=== PATIENT | male | born 1990 | race Caucasian/White ===

== ENCOUNTER 2018-04-08 18:53 | Emergency (ER) | payer OTHER ==
[~2018-04-08] VITALS: Ht 175.3 cm; Wt 63.5 kg
[~2018-04-08 18:53] MED LIST: ACET500 PO; ALBU90OI INH; AMOCLA875 PO; ASACOL HD800 MG PO; AZIT250 PO; AZIT500 PO; BACL10 PO; BACL20; BENZ100A PO; Baclofen10 MG PO; CEPH500 PO; CIPR500 PO; CYCL10 PO; DIVA500EC PO; HYDACE5 PO; HYDPAM25 PO; Hydrocodone-Ap1 EA23 PO; IBUP600 PO; IBUP800 PO; LAMO100 PO; LAMO25; LAMO25 PO; MESA400ER PO; METPHE27ER; MIRT15 PO; MIRT30; NAPR500 PO; Norco 5-325 Ta1 EACH PO; OXYACE5T PO; PRED5 PO; PRODEXEL PO; PROM25 PO; Prednisone20 MG PO; RXHYDACE PO; RXPROM25 PO; Robaxin500 MG PO; SULF500A PO; SULTRIDS PO; TRAM50 PO; Ultram50 MG PO; VICODIN 5-3001 EACH PO; Zofran Odt4 MG SL
[2018-04-08 19:41] LABS: Hematocrit 52.9 % (37.0-53.0); Hemoglobin 17.3 g/dL (13.5-17.5); Mean Corpuscular HGB 28.9 pg (26.0-34.0); Mean Corpuscular HGB Conc 32.7 g/dL (31.5-36.5); Mean Corpuscular Volume 89 fL (80-100); Mean Platelet Volume 10.7 fL (9.1-12.4); Platelet Count 201 K/mm3 (150-400); RDW Coefficient Variation 13.8 % (11.7-14.2); RDW Standard Deviation 44.9 fL (35.1-46.3); Red Blood Cell Count 5.98 M/mm3 (4.30-5.90); White Blood Cell Count 11.79 K/mm3 (4.00-11.30)
[2018-04-08 19:59] LABS: BASOPHILS ABSOLUTE MAN 0.11 K/mm3 (0.00-0.23); BASOPHILS PERCENT MAN 1 % (0-2); EOSINOPHILS PERCENT MAN 0 % (0-6); TOTAL CELLS COUNTED 100
[2018-04-08 20:03] LABS: BAND PERCENT MAN 5 % (0-8); LYMPHOCYTES ABSOLUTE MAN 0.58 K/mm3 (0.84-5.20); LYMPHOCYTES PERCENT MAN 5 % (21-46); NEUTROPHILS ABSOLUTE MAN 10.96 K/mm3 (1.96-9.15); SEG NEUTROPHILS PERCENT MAN 88 % (41-73)
[2018-04-08 20:04] LABS: MONOCYTES ABSOLUTE MAN 0.11 K/mm3 (0.16-1.47); MONOCYTES PERCENT MAN 1 % (4-13)
[2018-04-08 20:21] LABS: Alanine Aminotransfer (ALT/SGP 204 U/L (12-78); Albumin, Blood 5.1 g/dL (3.4-5.0); Albumin/Globulin Ratio 1.2 (0.8-1.8); Alk Phos 97 U/L (50-136); Anion Gap 8 mmol/L (6-16); Aspartate Aminotrans (AST/SGOT 109 U/L (12-37); Blood Urea Nitrogen 33 mg/dL (8-24); CO2, Blood 24 mmol/L (21-32); Calcium, Blood 9.7 mg/dL (8.5-10.1); Chloride, Blood 105 mmol/L (98-108); Creatinine, Blood 0.81 mg/dL (0.60-1.20); Globulin, Blood 4.3 g/dL (2.2-4.0); Glomerular Filtration Rate >60 (60-); Glucose, Blood 124 mg/dL (70-99); Potassium, Blood 4.1 mmol/L (3.5-5.5); Sodium, Blood 137 mmol/L (136-145); Total Protein, Blood 9.4 g/dL (6.4-8.2)
[2018-04-08] MEDS ORDERED: Zofran Odt4 MG PO (23:51)
== END 2018-04-09 00:01 | disposition home or self-care (01) ==
LOC: ER 18:53
PROVIDERS: Emergency Medicine
DX: R11.2 Nausea with vomiting, unspecified (principal); R19.7 Diarrhea, unspecified; Z88.8 Allergy status to other drugs, medicaments and biological substances; Z88.1 Allergy status to other antibiotic agents; Z79.899 Other long term (current) drug therapy; F90.9 Attention-deficit hyperactivity disorder, unspecified type; F31.9 Bipolar disorder, unspecified; F17.210 Nicotine dependence, cigarettes, uncomplicated
CPT/HCPCS: 36415; 80053; 85025; 96361; 96374; 96375; 99283; J2405; J2550; J7030

== ENCOUNTER 2018-12-23 08:49 | Emergency (ER) | payer MEDICAID ==
[~2018-12-23] VITALS: Ht 177.8 cm; Wt 61.2 kg
[~2018-12-23 08:49] MED LIST changes: +Zofran Odt4 MG PO
[2018-12-23 10:38] LABS: Source, Urine Voided
[2018-12-23 10:55] LABS: Appearance, Urine Clear (Clear); Bilirubin, Urine Neg (Neg); Blood, Urine Neg (Neg); Color, Urine Yellow (P-Yellow); Glucose Qualitative, Urine Neg (Neg); Ketones, Urine Neg (Neg); Leukocyte Esterase, Urine Neg (Neg); Nitrite, Urine Neg (Neg); Protein, Urine Neg (Neg); Specific Gravity, Urine 1.005 (1.003-1.022); Urobilinogen, Urine NORM (Normal)
[2018-12-23] MEDS ORDERED: CYCL10 PO (11:11)
== END 2018-12-23 11:18 | disposition home or self-care (01) ==
LOC: ER 08:49
PROVIDERS: Physician Assistant
DX: M54.5 Low back pain (principal); G89.29 Other chronic pain; Z88.8 Allergy status to other drugs, medicaments and biological substances; Z79.899 Other long term (current) drug therapy; F31.9 Bipolar disorder, unspecified; F17.210 Nicotine dependence, cigarettes, uncomplicated
CPT/HCPCS: 81003; 99283

== ENCOUNTER 2019-02-16 20:02 | Emergency (ER) | payer SELFPAY ==
[~2019-02-16] VITALS: Ht 175.3 cm; Wt 56.7 kg
== END 2019-02-16 21:43 | disposition home or self-care (01) ==
LOC: ER 20:02
DX: S01.01XA Laceration without foreign body of scalp, initial encounter (principal); W22.8XXA Striking against or struck by other objects, initial encounter; Z88.8 Allergy status to other drugs, medicaments and biological substances; Z87.891 Personal history of nicotine dependence
CPT/HCPCS: 12001; 99282-25

== ENCOUNTER 2019-02-23 14:56 | Emergency (ER) | payer SELFPAY ==
[~2019-02-23] VITALS: Ht 175.3 cm; Wt 59.0 kg
== END 2019-02-23 15:40 | disposition home or self-care (01) ==
LOC: ER 14:56
DX: S01.01XD Laceration without foreign body of scalp, subsequent encounter (principal); F90.9 Attention-deficit hyperactivity disorder, unspecified type; F31.9 Bipolar disorder, unspecified; Z87.891 Personal history of nicotine dependence

== ENCOUNTER 2019-08-26 19:43 | Emergency (ER) | payer BC ==
[~2019-08-26] VITALS: Ht 175.3 cm; Wt 61.2 kg
[2019-08-26] MEDS ORDERED: CYCL10 PO (22:42)
== END 2019-08-26 23:15 | disposition home or self-care (01) ==
LOC: ER 19:43
DX: M54.41 Lumbago with sciatica, right side (principal); G89.29 Other chronic pain; Z88.8 Allergy status to other drugs, medicaments and biological substances; Z88.1 Allergy status to other antibiotic agents; Z87.891 Personal history of nicotine dependence
CPT/HCPCS: 72100; 99283-25

== ENCOUNTER 2019-09-06 11:13 | Emergency (ER) | payer BC ==
[~2019-09-06] VITALS: Ht 172.7 cm; Wt 63.5 kg
[2019-09-06] MEDS ORDERED: PENVK500 PO (11:26)
[2019-09-06] MEDS ORDERED: NAPR550 PO (11:26)
== END 2019-09-06 11:37 | disposition home or self-care (01) ==
LOC: ER 11:13
DX: K02.9 Dental caries, unspecified (principal); Z88.8 Allergy status to other drugs, medicaments and biological substances; Z88.1 Allergy status to other antibiotic agents; F90.9 Attention-deficit hyperactivity disorder, unspecified type; F31.9 Bipolar disorder, unspecified; Z87.891 Personal history of nicotine dependence
CPT/HCPCS: 99282

== ENCOUNTER 2021-05-01 10:57 | Emergency (ER) | payer BC ==
[~2021-05-01] VITALS: Ht 175.3 cm; Wt 61.2 kg
[~2021-05-01 10:57] MED LIST changes: +NAPR550 PO; +PENVK500 PO
[2021-05-01 13:10] LABS: Source, Urine Clean Catch
[2021-05-01 13:21] LABS: Appearance, Urine Clear (Clear); Bilirubin, Urine Neg (Neg); Blood, Urine 1+ (Neg); Color, Urine Yellow (P-Yellow); Glucose Qualitative, Urine Neg (Neg); Ketones, Urine Neg (Neg); Leukocyte Esterase, Urine Neg (Neg); Nitrite, Urine Pos (Neg); Protein, Urine Neg (Neg); Urobilinogen, Urine NORM (Normal)
[2021-05-01 13:33] LABS: Bacteria Mod /hpf; Mucus Light (0-Heavy); Red Blood Cells, Urine Rare /hpf (0-2); Squamous Epithelial Cells Not Seen /hpf (Few); White Blood Cells, Urine Rare /hpf (0-5)
== END 2021-05-01 14:11 | disposition home or self-care (01) ==
LOC: ER 10:57
PROVIDERS: Physician Assistant
DX: I86.1 Scrotal varices (principal); Z88.6 Allergy status to analgesic agent; Z88.5 Allergy status to narcotic agent; Z88.1 Allergy status to other antibiotic agents; Z79.899 Other long term (current) drug therapy; Z87.891 Personal history of nicotine dependence
CPT/HCPCS: 76870; 81001; 87086; 99284-25